=== PATIENT | female | born 1990 ===

== ENCOUNTER 2021-01-01 09:45 | Inpatient (IN) | payer MEDICAID, SELFPAY ==
[2021-01-01] VITALS (17 sets, daily range): BP systolic 85–140; BP diastolic 56–77; PULSE 51–85; RESP 16–18; TEMP 36.4–36.9; O2SAT 100
--- OUTSIDE RECORDS SUMMARY | 2021-01-01 10:29 | XMS_ITS ---
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 Up, Ultrasound, OB Follow Up, Order for US, OB check in, lab order, OB Follow Up, PE, Ultrasound Referral, OB Visit, Colpo, with repeat Genprobe, Ultrasound Results, Screening to ?, OB visit, PRAPARE SF, positive test, Positive test, return from travel , COVID testing, update, fasting labs, Pre ApptScreening, travel to restricted area, wants lyme testing, EST CARE, POC US , Cancelled Visit, POC US, PE, PE, PE, PE, Flu Shot, PRAPARE SF, CBC, Acute flu like symptoms, Labs and IBS per EAL, PE Annual, 05/07/18 lft msg needs PE , New Patient Establish Care, Abstraction of New Pt Chart, Historical Data, PPD, PPD READ, PPD plant Insurance Providers [facility] Member Patient Patient Patient Patient Patient Subscriber Subscriber Subscriber Group Insurance Plan Plan Plan Plan ID Relationship Address Phone Name Date of ID Name Date of No Type Insurance Insurance Insurance Coverage to Subscriber Address Phone Name Dates [place] [phone] [place] self Ashleen [id number] [address] [place] [address] [place] [address] EXCHANGE) [facility] EXCHANGE) [place] [id number] [place] [phone] [place] self Jessica n [id number] [address] [address]
--- NOTE | 2021-01-01 10:31 | HPE_ITS ---
Date of service: 01/01/21 Time of Service: 10:36 Assessment and Plan Assessment and plan (1) Positive GBS test: Status: Acute Assessment and plan: Patient is GBS positive however due to effects of antibiotics on her GI system in the past, after discussion of risks and benefits, she declines GBS prophylaxis. (2) Marginal insertion of umbilical cord: Status: Acute Assessment and plan: Marginal insertion confirmed on recent US. (3) Two vessel umbilical cord: Status: Acute Assessment and plan: Two vessel cord with normal growth scans throughout . (4) with 41 completed weeks gestation: Status: Acute Assessment and plan: 30y at 41.1w here with prodromal labor and post dates. heart tones are reactive and reassuring, category 1. Contractions are irregular and infrequent at this point. SVE . Plan to start pitocin to establish a good contraction pattern. She would like to avoid epidural if possible. Comfortable with tub and nitrous for pain managment. No increased risk of hemorrhage or shoulder dystocia. OB-HPI Labor/Delivery History of Present Illness Reason for Visit: Labor Chief Complaint: Uterine Contractions. GALILEA Calculator Estimated Delivery Date Method Current WG Current Estimate 12/24/20 Ultrasound #1 41w 1d History of Present Specific Issues/Plan 30yo at 41.1w by first trimester US with Rh+ RI GBS+. complicated by early diagnosis of Chlamydia as well as two vessel cord with marginal insertion. Growth scans were all normal throughout. She started michaela yesterday, becoming regular and more intense in the evening. She contracted every 10-15 minutes until about 2am at which time they slowed down. She has been walking, hydrating, and feeling baby move. Last SVE was . Membranes are intact. She presents today in prodromal labor, post da sonia. Review of Systems All systems reviewed & are unremarkable except as noted in HPI and below PFSH Social History Smoking/Tobacco Use Status: Never Smoking risk assessment performed?: Yes Alcohol Intake: former Substance use type: does not use Do you feel safe at home: Yes Do you feel safe in your relationship?: Yes Additional Social history: none History History 2 Para 0 Hx # Term Pregnancies Multiple births Hx # Pregnancies Ectopic pregnancies AB induced Hx Number of Living Children AB spontaneous Exam Physical Exam Vital Signs Reviewed: Yes Detailed Labor and Delivery Exam Dilation: 3 Effacement (%): 70 station: -3 Cervix position: mid Consistency: soft Quiñonez Score: Cervical Points Exam 0 1 2 3 Dilation Closed 1-2cm 3-4 cm 5-6cm Effacement 0-30% 40-50% 60-70% 80% Consistency Firm Medium Soft Station -3 -2 -1,0 +1,+2 Position Posterior Mid Anterior QUIÑONEZ Score(Cervical Ripeness Score): 7 Amniotic Membrane Status: Intact Monitor Mode: External Contraction Frequency(min): irregular Fetus A Monitor Accelerations: Present Monitor Decelerations: None Variability: Moderate (6-25 BPM) Presentation: Cephalic Categories: Category I Respiratory Exam Respiratory Exam: Normal Cardiovascular Exam Cardiovascular Exam: Normal Abdominal Exam Abdominal Exam: Normal Neurological Exam Neurological Exam: Normal Results Results Blood Type: O+ Rubella Status: Immune Varicella Immunity: Not Tested Risk Assessment Risk for Shoulder Dystocia Historical/Initial OB: NEGATIVE FOR: Pelvic Abnormality, Pre- BMI>30, Previous Shoulder Dystocia or Previous Macrosomia 40 Weeks: POSTIVE FOR: Post Dates; NEGATIVE FOR: EFW> 4500 gms or Maternal Weight Gain >40lb Increased Risk?: No Risk for Pre-Eclampsia Daily Dose ASA Indicated: No Yes, if one or more: NEGATIVE FOR: Hx Pre-E/Gest HTN, Chronic HTN, Multiple Gestation, Pre-gestational DM, Renal Disease, Systemic Lupus or APA Syndrome Yes, if 2 or more: POSITIVE FOR: Nulliparity; NEGATIVE FOR: Age>= 35 yrs, >10yr btwn pregnancies, BMI>30, ethinicty, Mother/Sister w/ Pre-E or Previous IUGR Risk for Post- Hemorrhage At Risk?: No Risks Reviewed Risks Reviewed Upon Admission: Yes
[2021-01-01] MEDS: Lactated Ringers 1,000 ML 125 ML IV ×2 (11:25→15:27)
[2021-01-01 11:38] LABS: HCT 32.6 % (36.0-46.0); HGB 11.3 g/dL (11.2-15.7); MCH 32.7 pg (27.0-33.0); MCHC 34.7 % (32.0-36.0); MCV 94.2 fL (80-95); MPV 10.4 fL (8.0-11.0); Platelet Count 195 10^3/uL (130-400); RBC 3.46 10^6/uL (3.93-5.22); RDW 11.7 % (11.7-14.6); RDW-SD 40.5 fL; WBC 6.56 10^3/uL (4.4-10.8)
[2021-01-01] MEDS: Oxytocin/Normal Saline 30 UNIT/500 ML BAG 2 UNITS IV (11:51)
[2021-01-01 13:03] LABS: Source Nasal/Nares
[2021-01-01 13:44] LABS: COVID-19 PCR Negative (Negative)
--- NOTE | 2021-01-01 13:47 | PGE_ITS ---
Date of service: 01/01/21 Time of Service: 13:47 Informed Consent Informed Consent: Augmentation of Labor Pelvic Exam Dilation: 4 Effacement (%): 80 station: -3 Cervix Position: mid Consistency: soft Vaginal Exam Presentation: Cephalic Contractions Monitor Mode: External Contraction Frequency(min): q4-5min Contraction Duration(sec): 30 Intensity: Mild Fetus A Monitor: External (US) Heart Rate Baseline: 140 Presentation: Cephalic Variability: Moderate (6-25 BPM) Categories: Category I FHR Rhythm: Regular Characteristics: Normal Accelerations: 15 X 15 Decelerations: None Amniotic Membrane Status: Intact Assessment and Plan Assessment and plan (1) with 41 completed weeks gestation: Status: Acute Assessment and plan: Doing well. Beginning to develop a regular contra ction pattern although they are short and mild. Will continue to titrate pitocin up as tolerated. Managing pain well. Will use nitrous as needed. Continue current plan. (2) Positive GBS test: Status: Acute Assessment and plan: Avoid AROM for now as GBS positive and declines abx Objective Abnormal lab results 01/01/21 Range/Units 11:28 RBC 3.46 L (3.93-5.22) 10^6/uL Hct 32.6 L (36.0-46.0) % Temp Pulse Resp BP Pulse Ox 36.4 C L 53 L 16 99/69 L 100 01/01/21 11:30 01/01/21 13:12 01/01/21 11:30 01/01/21 13:12 01/01/21 11:35 Laboratory Results WBC 6.56 10^3/uL (4.4-10.8) 01/01/21 11:28 RBC 3.46 10^6/uL (3.93-5.22) L 01/01/21 11:28 Hgb 11.3 g/dL (11.2-15.7) 01/01/21 11:28 Hct 32.6 % (36.0-46.0) L 01/01/21 11:28 MCV 94.2 fL (80-95) 01/01/21 11:28 MCH 32.7 pg (27.0-33.0) 01/01/21 11:28 MCHC 34.7 % (32.0-36.0) 01/01/21 11:28 RDW 11.7 % (11.7-14.6) 01/01/21 11:28 Plt Count 195 10^3/uL (130-400) 01/01/21 11:28 MPV 10.4 fL (8.0-11.0) 01/01/21 11:28 COVID-19 Source Nasal/nares 01/01/21 12:49 Patient ABO/Rh O Positive 01/01/21 11:28 Antibody Screen Negative 01/01/21 11:28 Subjective Patient Reports: No new Complaints Results Hemoglobin/Hematocrit: Hgb 11.3 g/dL (11.2-15.7) 01/01/21 11:28 Hct 32.6 % (36.0-46.0) L 01/01/21 11:28 Abnormal Lab Findings: Abnormal Labs 01/01/21 11:28 RBC 3.46 L Hct 32.6 L
--- NOTE | 2021-01-01 16:11 | W.PM.OBNL1 ---
Date of service: 01/01/21 Time of Service: 16:11 Informed Consent Informed Consent: Augmentation of Labor Assessment and Plan Assessment and plan (1) Positive GBS test: Status: Acute Assessment and plan: Discussed benefits and risks of GBS prophylaxis again. Discussed being more comfortable with AROM if she were on abx, which would help labor progress. After detailed discussion, she and her partner agreed to initiate GBS prophylaxis. (2) with 41 completed weeks gestation: Status: Acute Assessment and plan: Labor is progressing although slowly. She is quite uncomfortable. She would like to try nitrous and agrees to Pen prophy and then AROM to help augment labor. Objective Abnormal lab results 01/01/21 Range/Units 11:28 RBC 3.46 L (3.93-5.22) 10^6/uL Hct 32.6 L (36.0-46.0) % Temp Pulse Resp BP Pulse Ox 36.8 C 58 L 16 114/66 100 01/01/21 15:23 01/01/21 15:32 01/01/21 11:30 01/01/21 15:32 01/01/21 11:35 Laboratory Results WBC 6.56 10^3/uL (4.4-10.8) 01/01/21 11:28 RBC 3.46 10^6/uL (3.93-5.22) L 01/01/21 11:28 Hgb 11.3 g/dL (11.2-15.7) 01/01/21 11:28 Hct 32.6 % (36.0-46.0) L 01/01/21 11:28 MCV 94.2 fL (80-95) 01/01/21 11:28 MCH 32.7 pg (27.0-33.0) 01/01/21 11:28 MCHC 34.7 % (32.0-36.0) 01/01/21 11:28 RDW 11.7 % (11.7-14.6) 01/01/21 11:28 Plt Count 195 10^3/uL (130-400) 01/01/21 11:28 MPV 10.4 fL (8.0-11.0) 01/01/21 11:28 COVID-19 Source Nasal/nares 01/01/21 12:49 SARS-CoV-2 (PCR) Negative (Negative) 01/01/21 12:49 Patient ABO/Rh O Positive 01/01/21 11:28 Antibody Screen Negative 01/01/21 11:28 Subjective Patient Reports: No new Complaints Interval history since last seen: Carlito is doing well, lots of position changes. Very uncomfortable now. Results Hemoglobin/Hematocrit: Hgb 11.3 g/dL (11.2-15.7) 01/01/21 11:28 Hct 32.6 % (36.0-46.0) L 01/01/21 11:28 Abnormal Lab Findings: Abnormal Labs 01/01/21 11:28 RBC 3.46 L Hct 32.6 L
[2021-01-01] MEDS: Penicillin G POT. 5,000,000 UNITS in Normal Saline 100 ML 200 UNITS IVPB (16:51)
--- NOTE | 2021-01-01 18:00 | W.PM.OBNL1 ---
Date of service: 01/01/21 Time of Service: 18:00 Informed Consent Informed Consent: Augmentation of Labor Assessment and Plan Assessment and plan (1) with 41 completed weeks gestation: Status: Acute Assessment and plan: Carlito is progressing and baby looks good however she is very uncomfortable and fatigued. She is considering epidural but prefers not to. We did AROM with clear fluid. She is going to see if the tub provides pain relief. (2) Positive GBS test: Status: Acute Assessment and plan: She has now received loading dose of Penicillin. Objective Abnormal lab results 01/01/21 Range/Units 11:28 RBC 3.46 L (3.93-5.22) 10^6/uL Hct 32.6 L (36.0-46.0) % Temp Pulse Resp BP Pulse Ox 36.8 C 82 16 111/69 100 01/01/21 15:23 01/01/21 16:38 01/01/21 11:30 01/01/21 16:38 01/01/21 11:35 Laboratory Results WBC 6.56 10^3/uL (4.4-10.8) 01/01/21 11:28 RBC 3.46 10^6/uL (3.93-5.22) L 01/01/21 11:28 Hgb 11.3 g/dL (11.2-15.7) 01/01/21 11:28 Hct 32.6 % (36.0-46.0) L 01/01/21 11:28 MCV 94.2 fL (80-95) 01/01/21 11:28 MCH 32.7 pg (27.0-33.0) 01/01/21 11:28 MCHC 34.7 % (32.0-36.0) 01/01/21 11:28 RDW 11.7 % (11.7-14.6) 01/01/21 11:28 Plt Count 195 10^3/uL (130-400) 01/01/21 11:28 MPV 10.4 fL (8.0-11.0) 01/01/21 11:28 COVID-19 Source Nasal/nares 01/01/21 12:49 SARS-CoV-2 (PCR) Negative (Negative) 01/01/21 12:49 Patient ABO/Rh O Positive 01/01/21 11:28 Antibody Screen Negative 01/01/21 11:28 Subjective Interval history since last seen: Carlito is very uncomfortable. Considering epidural but still would like to try to avoid it. Discussed AROM again as well as getting in the tub. Results Hemoglobin/Hematocrit: Hgb 11.3 g/dL (11.2-15.7) 01/01/21 11:28 Hct 32.6 % (36.0-46.0) L 01/01/21 11:28 Abnormal Lab Findings: Abnormal Labs 01/01/21 11:28 RBC 3.46 L Hct 32.6 L
--- NOTE | 2021-01-01 19:32 | W.PM.OBNL1 ---
Date of service: 01/01/21 Time of Service: 19:32 Informed Consent Informed Consent: Augmentation of Labor Pelvic Exam Dilation: 8 Effacement (%): 90 station: -1 Cervix Position: anterior Consistency: soft Vaginal Exam Presentation: Cephalic Contractions Monitor Mode: External Contraction Frequency(min): 3-4 Contraction Duration(sec): 60-90 Intensity: Moderate/Strong Fetus A Monitor: External (US) Heart Rate Baseline: 140 Presentation: Cephalic Variability: Moderate (6-25 BPM) Categories: Category II FHR Rhythm: Regular Characteristics: Normal Accelerations: 15 X 15 Decelerations: Variable Recurrence: Recurrent Amniotic Membrane Status: Ruptured Assessment and Plan Assessment and plan (1) with 41 completed weeks gestation: Status: Acute Assessment and plan: Doing well. Pit was stopped at approx 1830 and although contractions slowed, they did not stop. This did allow her some much needed rest. Unfortunately, IV could not be flushed so will need to be replaced for second dose of Abx. FHT with recurrent decels but they recover well. Monitoring was difficult in the tub with pit, but is now intermittent with pit stopped. (2) Positive GBS test: Status: Acute Assessment and plan: see above Objective Abnormal lab results 01/01/21 Range/Units 11:28 RBC 3.46 L (3.93-5.22) 10^6/uL Hct 32.6 L (36.0-46.0) % Temp Pulse Resp BP Pulse Ox 36.8 C 82 16 111/69 100 01/01/21 15:23 01/01/21 16:38 01/01/21 11:30 01/01/21 16:38 01/01/21 11:35 Laboratory Results WBC 6.56 10^3/uL (4.4-10.8) 01/01/21 11:28 RBC 3.46 10^6/uL (3.93-5.22) L 01/01/21 11:28 Hgb 11.3 g/dL (11.2-15.7) 01/01/21 11:28 Hct 32.6 % (36.0-46.0) L 01/01/21 11:28 MCV 94.2 fL (80-95) 01/01/21 11:28 MCH 32.7 pg (27.0-33.0) 01/01/21 11:28 MCHC 34.7 % (32.0-36.0) 01/01/21 11:28 RDW 11.7 % (11.7-14.6) 01/01/21 11:28 Plt Count 195 10^3/uL (130-400) 01/01/21 11:28 MPV 10.4 fL (8.0-11.0) 01/01/21 11:28 COVID-19 Source Nasal/nares 01/01/21 12:49 SARS-CoV-2 (PCR) Negative (Negative) 01/01/21 12:49 Patient ABO/Rh O Positive 01/01/21 11:28 Antibody Screen Negative 01/01/21 11:28 Subjective Interval history since last seen: Doing well, working through contractions in the tub. Results Hemoglobin/Hematocrit: Hgb 11.3 g/dL (11.2-15.7) 01/01/21 11:28 Hct 32.6 % (36.0-46.0) L 01/01/21 11:28 Abnormal Lab Findings: Abnormal Labs 01/01/21 11:28 RBC 3.46 L Hct 32.6 L
[2021-01-01] MEDS: Normal Saline Flush 10 ML SYR IVP (20:28)
[2021-01-01] MEDS: Penicillin G POT. 3,000,000 UNITS in Normal Saline 50 ML 100 UNITS IVPB (20:57)
--- NOTE | 2021-01-01 23:46 | OBVDS_ITS ---
Date of service: 01/01/21 Time of Service: 23:46 OB Labor/ Delivery Information Baby A Delivery Delivery Method: Spontaneaous Presentation: Other (compound with hand) Cephalic Position: Vertex Vertex Position: Right Occipital Anterior Breech Position: N/A Cord Description-Baby A: 2 Vessels Amniotic Fluid: Clear Estimated Blood Loss: 200 Delivery Outcome: Liveborn Complications: none Providers Doctor: Roman Dillard [employer] Consultant: Roman Dillard Nurse: Caryl Rooney Nurse: Madelaine Joe Other: Caryl Jackson Labor/Delivery Information Number of Babies in Womb: 1 Steroids Given: None Reason Steroids Not Administered: Indication Group Beta Strep: Positive Antibiotics Administered: Yes Number of Doses of Antibiotics: 2 Rubella Status: Immune Blood Type: O+ Varicella Immunity: Not Tested Maternal Complications: None Shoulder Dystocia: No Stages of Labor Onset of Labor Date: 12/31/20 Onset of Labor Time: 19:00 Complete Dilatation Date: 01/01/21 Complete Dilatation Time: 21:30 Labor - Stage 1 Duration: 24 hours and 0 minutes ROM Baby A: 01/01/21 ROM Baby A: 17:42 ROM Total Time- Baby A: [id number] Delivery Date-Baby A: 01/01/21 Infant Delivery Time-Baby A: 22:50 Labor Stage 2 Duration: 1 hours and 20 minutes Placenta Delivery Date-Baby A: 01/01/21 Placenta Delivery Time-Baby A: 21:57 Labor-Stage 3 Duration: -53 minutes Total Length of Labor-Baby A: 27 hours and 50 minutes Placenta Cultured: No Placenta Status: Delivered Baby A Infant Gender: Female Gestational Status: Term (39-41.6 wks) Gestational Age in Weeks/Days: 41 Weeks and 1 Days Score-1 Minute Interval(Baby A) Heart Rate-1 minute: 100 BPM or Greater Respiratory Effort- 1 minute: Spontaneous/Strong Cry Muscle Tone-1 minute: Active Movement Reflex Response-1 minute: Prompt Response Color-1 minute: Pallor or Cyanosis Total Score-1 minute: 8 Score-5 Minute Interval(Baby A) Heart Rate- 5 minute: 100 BPM or Greater Respiratory Effort-5 minute: Slow Respiration/Weak Cry Muscle Tone-5 minute: Active Movement Reflex Response-5 minute: Prompt Response Color-5 minute: Bluish Hands or Feet Total Score- 5 minute: 8 Interventions Pain Management Interventions: Nitrous Oxide , used with good effect ./ Repair of Laceration Type: Perineal and Periurethral , Laceration Extension: Second Degree . Sponge Count Correct: No Sponges Placed in Vagina , Sharp Count Correct: Yes . Laceration Repair Note: perineal laceration repaired in the usual fashion with 3-0 vicryl, good hemostasis achieved. left periurethral/vaginal wall lac was minimal but bleeding so repaired as well to achieve good hemostasi s.
[2021-01-02] VITALS (7 sets, daily range): BP systolic 97–115; BP diastolic 56–70; PULSE 59–75; RESP 16–18; TEMP 36.6–36.8; O2SAT 97
[2021-01-02] MEDS: Ibuprofen 600 MG TAB PO ×2 (09:00→20:39)
[2021-01-02] MEDS: Docusate Sodium 100 MG CAP PO ×2 (09:00→20:39)
--- NOTE | 2021-01-02 12:49 | OBPPV_ITS ---
Date of service: 01/02/21 Time of Service: 11:19 Assessment and Plan Assessment and plan (1) Status post vaginal delivery: Status: Acute Assessment and plan: 30 yo day 1 s/p of healthy baby girl. Doing very well. Nursing is going well. Reviewed normal lochia and reasons to call a nurse for evaluation. Repair intact. Routine care. Anticipate discharge tomorrow. Subjective Subjective Interval history: Doing very well . Moderate lochia, not abnormal. Minimal discomfort in perineum. Nursing going well, no sore nipples. Mood is good. Eating and drinking well. Voiding, passing flatus. No BM yet. Patient comments: No complaints Patient's Mood: good [place] baby status: Doing well, Nursing well and Strong Bonding Observed feeding status: Exclusively breast feeding Exam Physical Exam Vital signs: Temp Pulse Resp BP Pulse Ox 36.6 C 75 16 109/70 97 01/02/21 08:15 01/02/21 08:15 01/02/21 08:15 01/02/21 08:15 01/02/21 08:15 Vital Signs Reviewed: Yes Constitutional Constitutional: no acute distress Fundal Exam Fundus: Below Umbilicus and Firm Exam Perineum: Repair Intact Extremities Exam Extremity Exam: Normal Neurological Exam Neurological Exam: Normal Psychiatric Exam Psychiatric Exam: Normal Results Hemoglobin/Hematocrit: Hgb 11.3 g/dL (11.2-15.7) 01/01/21 11:28 Hct 32.6 % (36.0-46.0) L 01/01/21 11:28 Abnormal Lab Findings: Abnormal Labs 01/01/21 11:28 RBC 3.46 L Hct 32.6 L
[2021-01-03] VITALS: BP 93/55; PULSE 59; RESP 18; TEMP 36.7
[2021-01-03 07:15] VITALS: BP 97/59; PULSE 61; RESP 12; TEMP 36.6; O2SAT 98
--- NOTE | 2021-01-03 07:55 | W.PM.OBDISCH ---
Date of service: 01/03/21 Time of Service: 07:55 DS: Diagnosis Discharge Diagnosis (1) Status post vaginal delivery: Status: Acute Asessment and Plan: 30y [id number] sp with Rh+ RI GBS+ adequately treated. complicated by 2 vessel cord with marginal insertion. Labor was uncomplicated although long, with pitocin augmentation. She is doing well post . Voiding well, passing flatus. Up and about without issue. Pain is minimal and bleeding minimal. Nursing is going very well with no concerns. Normal exam. Discharge home today. She will be using barrier protection for contraction. Follow up in 6 weeks in clinic. Discharge Plan Disposition Patient Disposition: HOME Condition: Good Discharge Details Reason For Visit: Labor Admit Date/Time: 01/01/21 09:45 Admit Provider: Roman Dillard Attending Provider: Roman Dillard Primary Care Provider: Aide Matos Home Meds and New Rx's Prescriptions: No Action Vitamin Tablet 1 tab PO DAILY RF: 0 Discharge Instructions Stand Alone Forms: BC Post Vaginal Deliver Activity:: Activity as Tolerated Equipment/Supplies:: No Equipment Needed Diet:: As Tolerated Discharge Orders Discharge Orders: Discharge Order (Routine); Ordered 01/03/21 Ordered By: Roman Dillard OB:DS Summary Summary Vaginal Delivery Method: Spontaneaous Laceration Description: Perineal and Periurethral Laceration Extension: Second Degree Contraception Discussed Contraception Discussed: Yes, [place] Infant Gender-Baby A: Female weight: 3140 g Status at Discharge Functional status at discharge: independent ambulation Overall status at discharge: patient is back to baseline Mental Status: mental status grossly normal Speech and Movement: speech and movement normal Mood: congruent mood Affect: normal affect Exam Physical Exam Vital signs: Temp Pulse Resp BP Pulse Ox 36.7 C 59 L 18 93/55 L 97 01/03/21 00:00 01/03/21 00:00 01/03/21 00:00 01/03/21 00:00 01/02/21 08:15 Vital Signs Reviewed: Yes Constitutional Constitutional: no acute distress HEENT Exam HEENT Exam: Normal Fundal Exam Fundus: Below Umbilicus and Firm Neurological Exam Neurological Exam: Normal Psychiatric Exam Psychiatric Exam: Normal [facility] Social History Smoking/Tobacco Use Status: Never Smoking risk assessment performed?: Yes Alcohol Intake: former Substance use type: does not use Do you feel safe at home: Yes Do you feel safe in your relationship?: Yes Additional Social history: none History History 2 Para 0 Hx # Term Pregnancies Multiple births Hx # Pregnancies Ectopic pregnancies AB induced Hx Number of Living Children AB spontaneous DS: Data Vitals/I&O Vitals and I&O: Vital Signs Temperature 36.7 C 01/03/21 00:00 Pulse 59 L 01/03/21 00:00 Pulse Rhythm Regular 01/03/21 00:00 Respiratory Rate 18 01/03/21 00:00 Respiratory Depth Normal 01/01/21 10:15 Blood Pressure 93/55 L 01/03/21 00:00 Blood Pressure Mean 67 01/03/21 00:00 Pulse Oximetry 97 01/02/21 08:15 Oxygen Delivery Method Room Air 01/01/21 10:15 Oxygen Flow Rate 0 01/01/21 10:15 Pain Level 1 01/02/21 20:39 Intake & Output 01/02/21 01/02/21 01/03/21 11:59 23:59 11:59 Intake Total 1500 / 1500 1050 / 1050 Output Total 2400 / 2400 Balance -900 / -900 1050 / 1050 Intake: IV 1500 / 1500 1050 / 1050 Output: Urine 2400 / 2400 Other: Urine Color Pale Yellow Light Nisa
== END 2021-01-03 10:00 | disposition home or self-care (01) | DRG 807 ==
PROVIDERS: Admitting Provider Family Medicine; PCP Nurse Practitioner Family; Visit Provider Family Medicine
DX: O48.0 Post-term pregnancy (principal); Z37.0 Single live birth; O99.824 Streptococcus B carrier state complicating childbirth; O32.6XX0 Maternal care for compound presentation, not applicable or unspecified; O70.1 Second degree perineal laceration during delivery; O71.82 Other specified trauma to perineum and vulva; O69.89X0 Labor and delivery complicated by other cord complications, not applicable or unspecified; Z3A.41 41 weeks gestation of pregnancy
CPT/HCPCS: 36415; 85027; 86850; 86900; 86901; 87635; G0378; J2540; J3490

== ENCOUNTER 2022-11-11 02:48 | Inpatient (IN) | payer MEDICAID, SELFPAY ==
[2022-11-11] VITALS (128 sets, daily range): BP systolic 95–127; BP diastolic 58–72; PULSE 0–92; RESP 16; TEMP 36.5–36.8; O2SAT 66–100
--- NOTE | 2022-11-11 02:50 | W.PM.OBHPL1 ---
Date of service: 11/11/22 Time of Service: 02:50 Assessment and Plan Assessment and plan (1) : Status: Acute Assessment and plan: 32yo at 41.1weeks by first trimester US with Rh+ RI GBS+ presents in labor. Contractions started 9pm, possible SROM at 10pm, Rom+ pending. She has been michaela every 10min for the last several hours. Diet controlled GDM in , sugars well controlled. She and her partner wish to decline GBS prophylaxis after thorough discussion of risks and benefits. They are willing to stay 48hrs after delivery to monitor baby. On exam Thursday morning in clinic, there was a compound presentation with arm to moms left, but I do not appreciate that tonight. SVE /-3. Routine labor care. Anticipate . Qualifiers: Weeks of gestation: 41 weeks Qualified Code(s): O48.0 - Post-term ; Z3A.41 - 41 weeks gestation of (2) Positive GBS test: Status: Acute Assessment and plan: See above OB-HPI Labor/Delivery History of Present Illness Reason for Visit: labor Chief Complaint: Uterine Contractions; Suspected Rupture of Membranes , Associated Signs and Symptoms of Suspected ROM: Pt reports gush of clear fluid. GALILEA Calculator Estimated Delivery Date Method WG Current Estimate 12/24/20 Ultrasound #1 Infant Delivery Date-Baby A 01/01/21 41w 1d Comments: Contractions started at approximately 9pm last night and she believes her water broke at about 10pm History of Present Expected Delivery Route/Plan Specific Issues/Plan 32yo at 41.1 today with Rh+ RI GBS+ by urine Hep C-. complicated by positive 3hr GTT with sugars well controlled with diet since. Otherwise normal , growth scan at 39weeks showed baby at 37th percentile. Assessment: History Reviewed & Current Review of Systems All systems reviewed & are unremarkable except as noted in HPI and below PFSH All Active Problems (Updated 11/11/22 @ 03:06 by Roman Dillard) (Acute) Status post vaginal delivery (Acute) with 41 completed weeks gestation (Acute) Positive GBS test (Acute) Marginal insertion of umbilical cord (Acute) Two vessel umbilical cord (Acute) Social History Smoking/Tobacco Use Status: Never Smoking risk assessment performed?: Yes Alcohol Intake: former Substance use type: does not use Do you feel safe at home: Yes Do you feel safe in your relationship?: Yes Additional Social history: none History History 2 Para 0 Hx # Term Pregnancies Multiple births Hx # Pregnancies Ectopic pregnancies AB induced Hx Number of Living Children AB spontaneous Meds Allergies and Home Medications Allergies Allergy/AdvReac Type Severity Reaction Status Date / Time No Known Allergies Allergy Unverified 01/01/21 16:28 Home Medications Medication Instructions Recorded Confirmed Type prenat.vits,danielle,ccg-oyni-fvuvz 1 tab PO DAILY 01/02/21 01/02/21 History Exam Physical Exam Vital Signs Reviewed: Yes Constitutional Constitutional: no acute distress Detailed Labor and Delivery Exam Dilation: 5 Effacement (%): 70 station: -3 Cervix position: anterior Consistency: soft Quiñonez Score: Cervical Points Exam 0 1 2 3 Dilation Closed 1-2cm 3-4 cm 5-6cm Effacement 0-30% 40-50% 60-70% 80% Consistency Firm Medium Soft Station -3 -2 -1,0 +1,+2 Position Posterior Mid Anterior QUIÑONEZ Score(Cervical Ripeness Score): 9 Amniotic Membrane Status: Ruptured Rupture Method: Spontaneous Amniotic Fluid: Clear Monitor Mode: External Contraction Frequency(min): 10 Contraction Intensity: Mild/Moderate Fetus A Heart Rate Baseline: 120 Monitor Accelerations: 15 X 15 Monitor Decelerations: None Variability: Moderate (6-25 BPM) Presentation: Cephalic Categories: Category I HEENT Exam HEENT Exam: Normal Respiratory Exam Respiratory Exam: Normal Cardiovascular Exam Cardiovascular Exam: Normal Abdominal Exam Abdominal Exam: Normal Exam Exam: Normal Extremities Exam Extremities Exam: Normal Skin Exam Skin Exam: Normal Neurological Exam Neurological Exam: Normal Psychiatric Exam Psychiatric Exam: Normal Risk Assessment Risk for Shoulder Dystocia Historical/Initial OB: NEGATIVE FOR: Pelvic Abnormality, Pre- BMI>30, Previous Shoulder Dystocia or Previous Macrosomia 40 Weeks: POSTIVE FOR: Post Dates; NEGATIVE FOR: EFW> 4500 gms or Maternal Weight Gain >40lb Increased Risk?: Yes Risk for Pre-Eclampsia Daily Dose ASA Indicated: No Yes, if one or more: NEGATIVE FOR: Hx Pre-E/Gest HTN, Chronic HTN, Multiple Gestation, Pre-gestational DM, Renal Disease, Systemic Lupus or APA Syndrome Yes, if 2 or more: POSITIVE FOR: Nulliparity; NEGATIVE FOR: Age>= 35 yrs, >10yr btwn pregnancies, BMI>30, ethinicty, Mother/Sister w/ Pre-E or Previous IUGR Risk for Post- Hemorrhage Initial: NEGATIVE FOR: Multiple Gestation, Previous PPH, Known Clotting Deficiency, Grand Multiparity or Anticoagulation At Risk?: No Risks Reviewed Risks Reviewed Upon Admission: Yes
[2022-11-11 03:32] LABS: HCT 34.8 % (36.0-46.0); MCH 31.7 pg (27.0-33.0); MCHC 34.5 % (32.0-36.0); MCV 92 fL (80-95); Platelet Count 194 10^3/uL (130-400); RBC 3.78 10^6/uL (3.93-5.22); RDW-SD 43.7 fL; WBC 8.25 10^3/uL (4.4-10.8)
[2022-11-11 03:38] LABS: ROM Plus Negative
[2022-11-11 04:08] LABS: Source Nasal/Nares
[2022-11-11 04:54] LABS: COVID-19 PCR Negative (Negative)
--- NOTE | 2022-11-11 06:18 | W.PM.OBNL1 ---
Date of service: 11/11/22 Time of Service: 06:18 Informed Consent Informed Consent: Augmentation of Labor Pelvic Exam Dilation: 5 Effacement (%): 70 station: -3 Cervix Position: anterior Consistency: soft Vaginal Exam Presentation: Cephalic ROM Plus: Negative Contractions Monitor Mode: External Contraction Frequency(min): 10 Intensity: Mild/Moderate Fetus A Monitor: Doppler Heart Rate Baseline: 125 Assessment and Plan Assessment and plan (1) : Status: Acute Assessment and plan: Carlito reports slightly more intense contractions but spaced out. Minimal cervical change. She is not ruptured. Discussed starting pitocin to achieve active labor. She agrees with this plan. Will place Serene monitor, start pitocin. Qualifiers: Weeks of gestation: 41 weeks Qualified Code(s): O48.0 - Post-term ; Z3A.41 - 41 weeks gestation of (2) Positive GBS test: Status: Acute Objective Abnormal lab results 11/11/22 Range/Units 03:10 RBC 3.78 L (3.93-5.22) 10^6/uL Hct 34.8 L (36.0-46.0) % Temp Pulse Resp BP Pulse Ox 36.6 C 66 16 101/66 66 L 11/11/22 02:56 11/11/22 02:56 11/11/22 02:56 11/11/22 02:56 11/11/22 02:56 Laboratory Results WBC 8.25 10^3/uL (4.4-10.8) 11/11/22 03:10 RBC 3.78 10^6/uL (3.93-5.22) L 11/11/22 03:10 Hgb 12.0 g/dL (11.2-15.7) 11/11/22 03:10 Hct 34.8 % (36.0-46.0) L 11/11/22 03:10 MCV 92 fL (80-95) 11/11/22 03:10 MCH 31.7 pg (27.0-33.0) 11/11/22 03:10 MCHC 34.5 % (32.0-36.0) 11/11/22 03:10 RDW 13.0 % (11.7-14.6) 11/11/22 03:10 Plt Count 194 10^3/uL (130-400) 11/11/22 03:10 MPV 11.0 fL (8.0-11.0) 11/11/22 03:10 Membranes Rupture Negative 11/11/22 02:38 COVID-19 Source Nasal/Nares 11/11/22 02:38 SARS-CoV-2 (PCR) Negative (Negative) 11/11/22 02:38 Patient ABO/Rh O Positive 11/11/22 03:10 Antibody Screen NEGATIVE 11/11/22 03:10 Vital Signs Reviewed: Yes Subjective Patient Reports: No new Complaints Interval history since last seen: Resting well, contractions somewhat more intense but spaced out a bit. Results Hemoglobin/Hematocrit: Hgb 12.0 g/dL (11.2-15.7) 11/11/22 03:10 Hct 34.8 % (36.0-46.0) L 11/11/22 03:10 Abnormal Lab Findings: Abnormal Labs 11/11/22 03:10 RBC 3.78 L Hct 34.8 L
[2022-11-11] MEDS: Oxytocin/Normal Saline 30 UNIT/500 ML BAG 4 UNITS IV (06:34)
[2022-11-11] MEDS: Lactated Ringers 1,000 ML 125 ML IV (06:37)
[2022-11-11] MEDS: Oxytocin/Normal Saline 30 UNIT/500 ML BAG 334 UNITS IV (11:45)
--- NOTE | 2022-11-11 12:07 | W.OBDELIVERY ---
Date of service: 11/11/22 Time of Service: 11:42 OB Labor/ Delivery Information Baby A Delivery Delivery Method: Spontaneaous Presentation: Cephalic Cephalic Position: Vertex Vertex Position: Right Occipital Anterior Breech Position: N/A Cord Description-Baby A: 3 Vessels Amniotic Fluid: Clear Delivery Outcome: Liveborn Transferred: Remains with Mother Providers Doctor: Roman Dillard [place] Gatherer: Roman Dillard Nurse: Cassie Gabriel Nurse: Stephanie Alejo Labor/Delivery Information Number of Babies in Womb: 1 Steroids Given: None Reason Steroids Not Administered: N/A Group Beta Strep: Positive Antibiotics Administered: No Rubella Status: Immune Blood Type: O+ Varicella Immunity: Not Tested Born En Route: No Maternal Complications: None Shoulder Dystocia: No Note: Carlito progressed well in labor on pitocin, using nitrous intermittently. At 11am, she was anterior lip with bulging bag. AROM performed with good amount of clear fluid. Head then descended quickly and she felt the urge to push. She pushed effectively for 36minutes, and delivered a vigorous male infant in MAGGIE position. Restituted to her right, right shoulder anterior. Shoulder was slow to deliver. This was recognized and we were about to put her in [place], but shoulder then delivered spontaneously. Pitocin was then run open. Apgars of 7 and 9. Baby was dried and stimulated and [facility]. After the cord stopped pulsing, it was clamped and cut by dad. Placenta delivered spontaneously, 3 vessel cord, intact. Mom did have 2 small first degree lacerations on the perineum and left periurethral, that did not require repair. Fundus firm, 2-3cm below umbilicus. Anticipate routine care. Stages of Labor Onset of Labor Date: 11/10/22 Onset of Labor Time: 21:00 Complete Dilatation Date: 11/11/22 Complete Dilatation Time: 11:06 Labor - Stage 1 Duration: 14 hours and 6 minutes ROM Baby A: 11/11/22 ROM Baby A: 11:07 Delivery Date-Baby A: 11/11/22 Delivery Time-Baby A: 11:42 Labor Stage 2 Duration: 36 minutes Placenta Delivery Date-Baby A: 11/11/22 Placenta Delivery Time-Baby A: 11:47 Labor-Stage 3 Duration: 5 minutes Total Length of Labor-Baby A: 14 hours and 42 minutes Placenta Cultured: No Placenta Status: Delivered Baby A Gender: Male Gestational Status: Term (39-41.6 wks) Gestational Age in Weeks/Days: 41 Weeks and 1 Days Length-Baby A: 53 cm Score-1 Minute Interval(Baby A) Heart Rate-1 minute: 100 BPM or Greater Respiratory Effort- 1 minute: Slow Respiration/Weak Cry Muscle Tone-1 minute: Active Movement Reflex Response-1 minute: Prompt Response Color-1 minute: Pallor or Cyanosis Total Score-1 minute: 7 Score-5 Minute Interval(Baby A) Heart Rate- 5 minute: 100 BPM or Greater Respiratory Effort-5 minute: Spontaneous/Strong Cry Muscle Tone-5 minute: Active Movement Reflex Response-5 minute: Prompt Response Color-5 minute: Bluish Hands or Feet Total Score- 5 minute: 9 Interventions Pain Management Interventions: Nitrous Oxide , used nitrous intermittently with minimal benefit. ./ Augmentation , Pitocin rate (mU/min): 10 pitocin started at 5cm, created effective contraction pattern at 10u .
[2022-11-12 03:24] VITALS: BP 98/59; PULSE 58; TEMP 36.6
[2022-11-12] MEDS: Docusate Sodium 100 MG CAP PO ×2 (03:37→20:14)
[2022-11-12 08:00] VITALS: BP 102/57; PULSE 66; RESP 16; TEMP 36.7
--- NOTE | 2022-11-12 14:10 | OBPPV_ITS ---
Date of service: 11/12/22 Time of Service: 14:10 Assessment and Plan Assessment and plan (1) Status post vaginal delivery: Status: Acute Assessment and plan: Carlito is doing great. Minimal bleeding, pain well controlled, voiding without issue. Not yet passed gas, getting stool softener. Up and about without dizziness. Nursing is going very well. Contraception plan is Vasectomy for partner. Normal exam. Routine care. DC home tomorrow. Subjective Subjective Patient comments: No complaints baby status: Doing well [place] feeding status: Exclusively breast feeding Exam Physical Exam Vital signs: Temp Pulse Resp BP Pulse Ox 36.7 C 66 16 102/57 L 100 11/12/22 08:00 11/12/22 08:00 11/12/22 08:00 11/12/22 08:00 11/11/22 14:41 Vital Signs Reviewed: Yes Constitutional Constitutional: no acute distress HEENT Exam HEENT Exam: Normal Respiratory Exam Respiratory Exam: Normal Cardiovascular Exam Cardiovascular Exam: Normal Fundal Exam Fundus: Below Umbilicus and Firm Extremities Exam Extremity Exam: Normal Skin Exam Skin Exam: Normal Neurological Exam Neurological Exam: Normal Psychiatric Exam Psychiatric Exam: Normal Results Hemoglobin/Hematocrit: Hgb 12.0 g/dL (11.2-15.7) 11/11/22 03:10 Hct 34.8 % (36.0-46.0) L 11/11/22 03:10 Abnormal Lab Findings: Abnormal Labs 11/11/22 03:10 RBC 3.78 L Hct 34.8 L
[2022-11-12 16:24] VITALS: BP 95/54; PULSE 91; TEMP 36.8
[2022-11-12] MEDS: Hamamelis Leaf/Glycerin 100 EACH BOX PR (20:15)
[2022-11-12 20:28] VITALS: BP 98/59; PULSE 61; RESP 15; TEMP 36.1
--- NOTE | 2022-11-13 06:37 | DSE_ITS ---
Date of service: 11/13/22 Time of Service: 06:37 DS: Diagnosis Discharge Diagnosis (1) Status post vaginal delivery: Status: Acute Asessment and Plan: 32yo L4Phnn1 with O+ RI GBS+ sp at 41.1w with uncompicated labor and delivery. Doing very well post . Nursing going well, pain controlled on NSAIDS, lochia normal. Voiding well, using brandan bottle. Taking stool softener, no BM yet. Alec plans to get a vasectomy for contraception. DC home today, follow up with me on thursday. Discharge Plan Disposition Patient Disposition: Home Condition: Good Discharge Details Reason For Visit: Labor Admit Date/Time: 11/11/22 02:48 Admit Provider: Roman Dillard Attending Provider: Roman Dillard Home Meds and New Rx's Prescriptions: No Action Vitamin Tablet 1 tab PO DAILY Discharge Instructions Stand Alone Forms: BC Post Vaginal Deliver Activity:: Activity as Tolerated Equipment/Supplies:: No Equipment Needed Diet:: As Tolerated Discharge Orders Discharge Orders: Discharge Order (Routine); Ordered 11/13/22 Ordered By: Roman Dillard OB:DS Summary Summary Vaginal Delivery Method: Spontaneaous Laceration Description: Perineal and Periurethral Laceration Extension: First Degree complications OB DS: none Contraception Discussed Contraception Discussed: Yes Contraceptive Plan: Vasectomy, [place] Infant Gender-Baby A: Male Disposition of Baby A: Home Status at Discharge Functional status at discharge: independent ambulation Overall status at discharge: patient is progressing back to baseline Mental Status: mental status grossly normal Speech and Movement: speech and movement normal Mood: congruent mood Affect: normal affect Time Spent with Patient providing and/or coordinating discharge services: Less than 30 minutes Hospital Course Carlito was admitted in early labor, and started on pitocin after several hours. Progressed quickly to anterior lip, AROM performed with clear fluid. Soon complete, pushed effectively for 36 minutes and delivered a viable male with apgars of 7 and 9. 2 small lacerations not requiring repair. Routine post course. Exam Physical Exam Vital signs: Temp Pulse Resp BP Pulse Ox 36.1 C L 61 15 98/59 L 100 11/12/22 20:28 11/12/22 20:28 11/12/22 20:28 11/12/22 20:28 11/11/22 14:41 Vital Signs Reviewed: Yes Constitutional Constitutional: no acute distress HEENT Exam HEENT Exam: Normal Respiratory Exam Respiratory Exam: Normal Cardiovascular Exam Cardiovascular Exam: Normal Fundal Exam Fundus: Below Umbilicus and Firm Extremities Exam Extremity Exam: Normal Skin Exam Skin Exam: Normal Neurological Exam Neurological Exam: Normal Psychiatric Exam Psychiatric Exam: Normal PFSH All Active Problems (Acute) Status post vaginal delivery (Acute) with 41 completed weeks gestation (Acute) Positive GBS test (Acute) Marginal insertion of umbilical cord (Acute) Two vessel umbilical cord (Acute) Social History Smoking/Tobacco Use Status: Never Smoking risk assessment performed?: Yes Alcohol Intake: former Substance use type: does not use Do you feel safe at home: Yes Do you feel safe in your relationship?: Yes Additional Social history: none History History 3 Para 1 Hx # Term Pregnancies Multiple births Hx # Pregnancies Ectopic pregnancies AB induced Hx Number of Living Children AB spontaneous DS: Data Vitals/I&O Vitals and I&O: Vital Signs Temperature 36.1 C L 11/12/22 20:28 Temperature Source Oral 11/12/22 20:28 Pulse 61 11/12/22 20:28 Pulse Rhythm Regular 11/12/22 20:30 Respiratory Rate 15 11/12/22 20:28 Respiratory Depth Normal 11/11/22 20:21 Blood Pressure 98/59 L 11/12/22 20:28 Blood Pressure Mean 72 11/12/22 20:28 Pulse Oximetry 100 11/11/22 14:41 Oxygen Delivery Method Room Air 11/11/22 02:56 Oxygen Flow Rate 0 11/11/22 02:56 Pain Level 4 11/11/22 02:56 Intake & Output 11/12/22 11/12/22 11/13/22 11:59 23:59 11:59 Other: Urine Color Yellow
[2022-11-13 09:00] VITALS: BP 98/56; PULSE 68; RESP 17; TEMP 36.8; O2SAT 98
== END 2022-11-13 12:10 | disposition home or self-care (01) | DRG 807 ==
PROVIDERS: Admitting Provider Family Medicine; Visit Provider Family Medicine
DX: O48.0 Post-term pregnancy (principal); Z37.0 Single live birth; Z3A.41 41 weeks gestation of pregnancy; O99.824 Streptococcus B carrier state complicating childbirth
CPT/HCPCS: 36415; 84112; 85027; 86850; 86900; 86901; 87635